=== PATIENT | female | born 1990 | race African-American/Black ===

== ENCOUNTER 2022-02-16 07:46 | Emergency (ER) | payer OTHER, SELFPAY ==
[2022-02-16] MEDS ORDERED: Ibuprofen 200 MG TAB ONE (08:18)
[2022-02-16] MEDS ORDERED: Acetaminophen 500 MG TAB ONE (08:18)
== END 2022-02-16 08:20 | disposition home or self-care (01) ==
LOC: CSHERS 07:46
DX: M62.838 Other muscle spasm (principal); M79.601 Pain in right arm
CPT/HCPCS: 99283

== ENCOUNTER 2025-02-06 17:46 | Emergency (ER) | payer MEDICAID, OTHER | END 2025-02-06 18:23 | LOC: CSHERS 17:46 | DX: Z53.21 Procedure and treatment not carried out due to patient leaving prior to being seen by health care provider (principal) ==